=== PATIENT | male | born 1955 | race Caucasian/White ===

== ENCOUNTER 2025-07-11 17:18 | Emergency (ER) | payer OTHER ==
[~2025-07-11] VITALS: Ht 167.6 cm; Wt 96.0 kg
[2025-07-11 17:19] VITALS: O2SAT 100
[2025-07-11] MEDS: TETANUS, DIPHTHERIA, PERTUSSIS VAC/PF 0.5ML (>10YR OLD) IM ONE (18:20)
[2025-07-11] MEDS: SODIUM CHLORIDE 0.9% 1,000 ML IV ONE (18:21)
[2025-07-11 18:28] LABS: BASOPHILS % 0.5 % (0.0-2.0); EOSINOPHILS % 1.3 % (0.0-5.0); HEMATOCRIT. 40.6 % (42.0-52.0); HEMOGLOBIN. 13.2 g/dL (14.0-18.0); LYMPHOCYTES % 24.8 % (20.0-50.0); MEAN PLATELET VOLUME 8.9 fl (7.4-10.4); MONOCYTES % 8.5 % (2.0-8.0); NEUTROPHILS % 64.9 % (40.0-76.0); PLATELET 220 x1000/uL (130-400); RED BLOOD CELL COUNT 4.05 mill/uL (4.7-6.1); RED CELL DISTRIBUTION WIDTH 13.0 % (11.6-14.6)
[2025-07-11] MEDS: LIDOCAINE HCL/EPINEPHRINE 1%-EPI 1:100,000 20ML VIAL INFIL ONE (18:29)
[2025-07-11 18:43] LABS: CREATININE 0.9 mg/dL (0.6-1.3)
[2025-07-11 18:44] LABS: ETHANOL BLOOD 270 mg/dL (<10); UREA NITROGEN BLOOD 10 mg/dL (9-23)
[2025-07-11 18:45] LABS: ASPARTATE AMINOTRANSFERASE 14 IU/L (<34)
[2025-07-11 18:46] LABS: BILIRUBIN DIRECT 0.1 mg/dL (<=3.0); BILIRUBIN TOTAL 0.4 mg/dL (0.1-1.0); INR 1.0; PROTEIN TOTAL 5.8 g/dL (6.0-8.3)
[2025-07-11 19:16] VITALS: TEMP 36.1
[2025-07-11 21:33] VITALS: BP 104/46; PULSE 78; RESP 15; O2SAT 98
== END 2025-07-11 21:35 | disposition home or self-care (01) ==
LOC: ER 17:18
DX: S01.81XA Laceration without foreign body of other part of head, initial encounter (principal); S01.111A Laceration without foreign body of right eyelid and periocular area, initial encounter; E11.9 Type 2 diabetes mellitus without complications; I10 Essential (primary) hypertension; I48.91 Unspecified atrial fibrillation; W19.XXXA Unspecified fall, initial encounter; Y93.89 Activity, other specified; Y92.89 Other specified places as the place of occurrence of the external cause; Y99.8 Other external cause status; Y90.9 Presence of alcohol in blood, level not specified
CPT/HCPCS: 80076; 80048; 80320; 85025; 85610; 85730; 36415; 70450; 72125; 90715; 93005; 12011; 90471; 96360; 99285; J2004; J7030; G0480